=== PATIENT | male | born 1990 | race Caucasian/White ===

== ENCOUNTER 2018-07-28 20:02 | Emergency (ER) | payer OTHER ==
[2018-07-28 20:26] VITALS: BP 141/69; O2SAT 99
--- NOTE | 2018-07-28 20:35 | ERPHSYRPT ---
- History of Present Illness Time Seen by Provider: 07/28/18 20:27 Source: patient Exam Limitations: no limitations Patient Subjective Stated Complaint: PT IS ALERT AND ORIENTED. PT IS AMBULATORY WITH A STEADY GAIT. PT COMES IN WITH C/O SMASHING HIS LEFT MIDDLE FINGER WITH A HAMMER AT ABOUT 1330 TODAY. PT STATES HE TREATED HIS PAIN WITH "TEQUILA". PT FINGER TIP IS SWOLLEN, PURPLE DISCOLORATION. PT STATES THAT HIS PAIN IS A 4/10. PT DENIES ANY LOSS OF ROM Triage Nursing Assessment: SEE ABOVE Physician History: Pt states, he accidentally smashed his left middle finger with hammer this afternoon, denies other injury, Occurred: hours ago (6) Method of Injury: direct blow Quality: intermittent Severity of Pain-Max: moderate Severity of Pain-Current: moderate Extremities Pain Location: 3rd finger: left (end phalanx) Modifying Factors: Improves With: immobilization, movement Associated Symptoms: none Allergies/Adverse Reactions: No Known Drug Allergies Allergy (Unverified 07/28/18 20:26) Immunizations Up to Date: Yes - Review of Systems Constitutional: No Symptoms Musculoskeletal: Other (left middle finger, end phalanx is painful) Neurological: No Symptoms All Other Systems: Reviewed and Negative - Past Medical History Pertinent Past Medical History: No - Past Surgical History Past Surgical History: No - Social History Smoking Status: Current every day smoker How long have you smoked: 8 years Drug Use: none - Nursing Vital Signs Nursing Vital Signs: Initial Vital Signs Temperature 99.5 F 07/28/18 20:21 Pulse Rate 96 H 07/28/18 20:21 Respiratory Rate 16 07/28/18 20:21 Blood Pressure 141/69 07/28/18 20:21 O2 Sat by Pulse Oximetry 99 07/28/18 20:21 Pain Scale Pain Intensity 4 - Physical Exam General Appearance: no apparent distress Eyes, Ears, Nose, Throat Exam: normal ENT inspection Neck Exam: normal inspection, non-tender Cardiovascular/Respiratory Exam: chest non-tender, normal breath sounds, regular rate/rhythm Abdominal Exam: non-tender Shoulder Exam: normal inspection, non-tender Hand Exam: ecchymosis (3rd finger, distal phalanx, small subungual hematoma, nail is otherwise intact, normal tendon function.) Neuro/Tendon Exam: normal sensation, normal motor functions Mental Status Exam: alert, oriented x 3, cooperative Skin Exam: normal color, warm, dry SpO2 Interpretation: normal SpO2: 99 O2 Delivery: Room Air - Course Nursing assessment & vital signs reviewed: Yes - Radiology Exams Left Hand X-ray Interpretation: Interpreted by me, Negative Ordered Tests: Active Orders 24 hr Category Date Time Status HAND (MINIMUM 3 VIEWS) Stat Exams 07/28/18 20:27 Taken - Progress Progress: unchanged Progress Note: 07/28/18 20:57 Pt is being discharged with instructions to rest with elevated hand, apply ice to swelling. Counseled pt/family regarding: diagnosis, need for follow-up, rad results - Departure Time of Disposition: 20:58 Departure Disposition: Home Clinical Impression: Fingertip contusion Qualifiers: Encounter type: initial encounter Qualified Code(s): S60.00XA - Contusion of unspecified finger without damage to nail, initial encounter Condition: Stable Critical Care Time: No Referrals: ARNOLD PARIS MD [Primary Care Provider] - Instructions: Finger Sprain (DC) Additional Instructions: Rest x 1-2 days, with elevated hand, apply ice to swelling!
[2018-07-28 21:12] VITALS: PULSE 98
--- NOTE | 2018-07-29 08:41 | XRAY ---
Indication: 3rd finger pain following injury. Comparison: None 3 views of the left hand demonstrates tiny nondisplaced 3rd finger tuft fracture. Base of the 4th proximal phalanx demonstrates incidental small bone island. Remaining hand unremarkable. Comment: Fracture not reported on preliminary interpretation by the ER clinician. Telephone report given to Dr. Sher at 0835 hours on July 29, 2018.
== END 2018-07-28 20:59 | disposition home or self-care (01) ==
LOC: ED 20:02
DX: S60.00XA Contusion of unspecified finger without damage to nail, initial encounter (principal); W22.8XXA Striking against or struck by other objects, initial encounter; Y93.89 Activity, other specified; M79.89 Other specified soft tissue disorders
CPT/HCPCS: 73130; 99283

== ENCOUNTER 2021-04-15 15:17 | Emergency (ER) | payer OTHER ==
[2021-04-15 15:29] VITALS: O2SAT 98
[2021-04-15] MEDS ORDERED: MOTRIN 600 MG PO ONE (15:42)
--- NOTE | 2021-04-15 15:46 | ERPHSYRPT ---
- History of Present Illness Source: patient Exam Limitations: no limitations Patient Subjective Stated Complaint: PT states "I had a bad headache last night and spiked a fever and now my lower back is hurting worse than my head." Triage Nursing Assessment: Pt presented alert and oriented X 3, skin wpd Pt ambulates with an upright steady gait, able to speak in clear full sentences pt in no apaprent respiratory distress. Physician History: 31 yo wm w fever/MORRIS/lumbar pain wo ST/Cough/N/V/D. Timing/Duration: yesterday Fever Severity: mild Fever Therapy [employer]ATOR: Acetaminophen Associated Symptoms: headache, No abdominal pain, No chest pain, No confusion, No cough, No diaphoresis, No muscle aches, No nausea/vomiting, No rash, No rhinorrhea, No shortness of breath, No sore throat, No stiff neck, No syncope, No weakness Allergies/Adverse Reactions: shellfish derived Allergy (Intermediate, Verified 04/15/21 15:30) Hives Home Medications: PANTOPRAZOLE 40 mg Tablet [Protonix 40MG Tablet] 40 mg PO QAM 04/15/21 [History] PARoxetine HCL [Paroxetine HCl] 10 mg PO DAILY 04/15/21 [History] Hx Tetanus, Diphtheria Vaccination/Date Given: No Hx Influenza Vaccination/Date Given: No Hx Pneumococcal Vaccination/Date Given: No Immunizations Up to Date: Yes Travel Risk - International Travel Have you traveled outside of the country in past 3 weeks: No - Coronavirus Screening Are you exhibiting any of the following symptoms?: Yes Symptoms: Headaches/Body Aches/Fatigue Close contact with a COVID-19 positive Pt in past 14-21 Days: No - Vaccine Status Have you recieved a Covid-19 vaccination: No - Review of Systems Constitutional: No Symptoms, Fever, Lethargy Eyes: No Symptoms Ears, Nose, & Throat: No Symptoms Respiratory: No Symptoms Cardiac: No Symptoms Abdominal/Gastrointestinal: No Symptoms Musculoskeletal: No Symptoms, Arthralgias, Back Pain Skin: No Symptoms Neurological: No Symptoms, Headache (Very mild) Psychological: No Symptoms Endocrine: No Symptoms Hematologic/Lymphatic: No Symptoms Immunological/Allergic: No Symptoms - Past Medical History Pertinent Past Medical History: Yes Neurological History: No Pertinent History ENT History: No Pertinent History Cardiac History: No Pertinent History Respiratory History: No Pertinent History Endocrine Medical History: No Pertinent History Musculoskeletal History: No Pertinent History GI Medical History: GERD History: No Pertinent History Psycho-Social History: Anxiety Male Reproductive Disorders: No Pertinent History - Past Surgical History Past Surgical History: No - Social History Smoking Status: Current some day smoker How long have you smoked: years Exposure to second hand smoke: Yes Drug Use: none Patient Lives Alone: No Significant Family History: no pertinent family hx - Nursing Vital Signs Nursing Vital Signs: Initial Vital Signs Temperature 100.1 F 04/15/21 15:22 Pulse Rate 98 H 04/15/21 15:22 Respiratory Rate 20 04/15/21 15:22 Blood Pressure 151/78 04/15/21 15:22 O2 Sat by Pulse Oximetry 98 04/15/21 15:22 Pain Scale Pain Intensity 4 Hypertensive/borderline febrile - Physical Exam General Appearance: no apparent distress Eye Exam: PERRL/EOMI, eyes nml inspection ENT Exam: normal ENT inspection, no apparent trauma, hearing grossly normal, TMs normal, pharynx normal, nasal congestion Neck Exam: normal inspection, non-tender, supple, full range of motion, trachea midline, No JVD, No limited range of motion Respiratory Exam: normal breath sounds, lungs clear, no respiratory distress SpO2: 98 - Course Nursing assessment & vital signs reviewed: Yes Ordered Tests: Active Orders 24 hr Category Date Time Status INFLUENZA A+B GEREMIAS Stat Lab 04/15/21 15:59 Completed UA W/RFX UR CULTURE Stat Lab 04/15/21 15:40 Completed Medication Summary Discontinued Medications Generic Name Dose Route Start Last Admin Trade Name Joaqiun PRN Reason Stop Dose Admin Ibuprofen 800 mg 04/15/21 15:42 04/15/21 15:51 Ibuprofen 600 Mg Tablet PO 04/15/21 15:43 Not Given STAT ONE Ibuprofen 800 mg 04/15/21 15:50 04/15/21 15:52 Ibuprofen 400 Mg Tablet PO 04/15/21 15:51 800 mg STAT ONE Administration Ibuprofen Confirm 04/15/21 15:51 Ibuprofen 400 Mg Tablet Administered 04/15/21 15:52 Dose 800 mg .ROUTE .STK-MED ONE Ketorolac Tromethamine 30 mg 04/15/21 17:00 04/15/21 17:11 Ketorolac Tromethamine 30 Mg/Ml Inj IM 04/15/21 17:01 30 mg STAT ONE Administration Ketorolac Tromethamine Confirm 04/15/21 17:10 Ketorolac Tromethamine 30 Mg/Ml Inj Administered 04/15/21 17:11 Dose 30 mg .ROUTE .STK-MED ONE Lab/Rad Data: Laboratory Results 04/15/21 04/15/21 04/15/21 Range/Units 15:59 15:59 15:40 Urine Color STRAW (YELLOW) Urine Appearance CLEAR (CLEAR) Urine pH 6.0 (5-6) Ur Specific [place] 1.002 (1.005-1.025) Urine Protein NEGATIVE (Negative) Urine Ketones NEGATIVE (NEGATIVE) Urine Blood NEGATIVE (0-5) Alberto/ul Urine Nitrite NEGATIVE (NEGATIVE) Urine Bilirubin NEGATIVE (NEGATIVE) Urine Urobilinogen NEGATIVE (0-1) mg/dL Ur Leukocyte Esterase NEGATIVE (NEGATIVE) Urine WBC (Auto) NONE (0-5) /HPF Urine RBC (Auto) NONE (0-2) /HPF U Epithel Cells (Auto) NONE (FEW) /HPF Urine Bacteria (Auto) NONE (NEGATIVE) /HPF Urine Mucus (Auto) SLIGHT (NEGATIVE) /HPF Urine Culture Reflexed NO (NO) Urine Glucose NEGATIVE (NEGATIVE) mg/dL Influenza Type A Ag NEGATIVE (NEGATIVE) Influenza Type B Ag NEGATIVE (NEGATIVE) Group A Strep Antibody NOT DETECTED (NEGATIVE) - Progress Progress: improved Progress Note: 04/15/21 17:01 800mg po Motrin 30mg IM Toradol Pt most likely has CV19 which has been sent out Counseled pt/family regarding: lab results, diagnosis, need for follow-up - Departure Departure Disposition: Home Clinical Impression: Viral syndrome Condition: Stable Critical Care Time: No Referrals: ARNOLD PARIS MD [Primary Care Provider] - Follow up/PCP as directed Instructions: Fever, Adult (DC), Coronavirus Disease 2019 (COVID-19) (DC) Additional Instructions: Quarantine until Covid test negative or 10 days. Test will be back in 2-3 days. Fluids Motrin/Tylenol for pain/Fever Follow up with your family MD as needed
[2021-04-15] MEDS ORDERED: MOTRIN 400 MG PO ONE (15:50)
[2021-04-15] MEDS ORDERED: MOTRIN 400 MG ONE (15:51)
[2021-04-15 15:58] LABS: Appearance CLEAR (CLEAR); Bilirubin NEGATIVE (NEGATIVE); Blood NEGATIVE Ery/ul (0-5); Glucose NEGATIVE (NEGATIVE); Ketones NEGATIVE (NEGATIVE); Leukocyte Esterase NEGATIVE (NEGATIVE); Mucus SLIGHT /HPF (NEGATIVE); Nitrite NEGATIVE (NEGATIVE); Protein,Urine Dip NEGATIVE (Negative); Specific Gravity 1.002 (1.005-1.025); Urobilinogen NEGATIVE mg/dL (0-1)
[2021-04-15 16:52] LABS: INFLUENZA A NEGATIVE (NEGATIVE); INFLUENZA B NEGATIVE (NEGATIVE)
[2021-04-15] MEDS ORDERED: TORAdol 30 mg Injection IM ONE (17:00)
[2021-04-15 17:08] VITALS: BP 140/68; PULSE 94
[2021-04-15] MEDS ORDERED: TORAdol 30 mg Injection ONE (17:10)
== END 2021-04-15 17:21 | disposition home or self-care (01) ==
LOC: ED 15:17
DX: B34.9 Viral infection, unspecified (principal); R51.9 Headache, unspecified; R50.9 Fever, unspecified; M54.50 Low back pain, unspecified; R05.9 Cough, unspecified; Z72.0 Tobacco use
CPT/HCPCS: 81001; 87400; 87651; 96372; 99284; U0003; J1885; A9270-GY